=== PATIENT | male | born 1950 | race Caucasian/White ===

== ENCOUNTER → 2017-09-08 | Outpatient (CLI) | payer MEDICARE, OTHER ==
[2013-07-07 10:50] VITALS: BP 132/65
[~2017-09-08] MED LIST: ALEVE 220MG220 MG PO; ALLOPURINOL100 MG PO; LEXAPRO5 MG PO; PERCOCET 325 MG1 TA2 PO; ULTRAM50 MG PO; XANAX0.25 MG PO
== END ==
LOC: CARDLAB 10:05 → CARDREHAB 15:14 → CARDLAB 15:30
DX: R07.9 Chest pain, unspecified (principal); R06.09 Other forms of dyspnea; R94.31 Abnormal electrocardiogram [ECG] [EKG]

== ENCOUNTER → 2019-10-08 | Outpatient (CLI) | payer MEDICARE, OTHER ==
[2013-07-07 10:50] VITALS: BP 132/65
== END ==
LOC: RAD 15:29
DX: Z87.891 Personal history of nicotine dependence (principal)